=== PATIENT | male | born 1985 | race Caucasian/White ===

== ENCOUNTER 2022-04-15 17:07 | Emergency (ER) | payer BC ==
[2022-04-15] MEDS ORDERED: Lidocaine 1% (PF) 30 ML VIAL ONE (17:15)
[2022-04-15] MEDS ORDERED: Bacitracin 1 PK ONE (17:43)
== END 2022-04-15 18:03 | disposition home or self-care (01) ==
LOC: BURERS 17:07
DX: S81.811A Laceration without foreign body, right lower leg, initial encounter (principal); E78.00 Pure hypercholesterolemia, unspecified; W26.9XXA Contact with unspecified sharp object(s), initial encounter
CPT/HCPCS: 12004; J2001